=== PATIENT | male | born 1950 | race Caucasian/White ===

== ENCOUNTER 2023-07-14 02:04 | Emergency (ER) | payer OTHER ==
[2023-07-14] MEDS ORDERED: Boostrix 0.5 ML (Tdap) VIAL (>/=7 yrs of age) ONE (03:37)
[2023-07-14] MEDS ORDERED: HYDROcodone/Acetaminophen 5/325 mg Tablet ONE (03:40)
== END 2023-07-14 04:30 ==
LOC: NAV ERS 02:04
DX: S70.212A Abrasion, left hip, initial encounter (principal); S80.212A Abrasion, left knee, initial encounter; E11.9 Type 2 diabetes mellitus without complications; E03.9 Hypothyroidism, unspecified; K21.9 Gastro-esophageal reflux disease without esophagitis; I12.0 Hypertensive chronic kidney disease with stage 5 chronic kidney disease or end stage renal disease; E11.22 Type 2 diabetes mellitus with diabetic chronic kidney disease; N18.6 End stage renal disease; E78.5 Hyperlipidemia, unspecified; Z23 Encounter for immunization; Z79.82 Long term (current) use of aspirin; Z79.84 Long term (current) use of oral hypoglycemic drugs; Z79.899 Other long term (current) drug therapy; W22.8XXA Striking against or struck by other objects, initial encounter; Y93.01 Activity, walking, marching and hiking
CPT/HCPCS: 72192; 90471; 90715; G0390

== ENCOUNTER 2024-01-13 14:12 | Emergency (ER) | payer OTHER | END 2024-01-13 15:48 | LOC: NAV ERS 14:12 → EEVIPCON 14:12 → NAV ERS 15:48 | DX: M25.552 Pain in left hip (principal); G89.29 Other chronic pain; E03.9 Hypothyroidism, unspecified; I12.0 Hypertensive chronic kidney disease with stage 5 chronic kidney disease or end stage renal disease; E11.22 Type 2 diabetes mellitus with diabetic chronic kidney disease; N18.6 End stage renal disease; Z99.2 Dependence on renal dialysis; Z79.82 Long term (current) use of aspirin; Z79.899 Other long term (current) drug therapy; Z79.84 Long term (current) use of oral hypoglycemic drugs ==